=== PATIENT | female | born 1985 | race Caucasian/White ===

== ENCOUNTER → 2017-05-16 14:35 | Outpatient (REF) | payer BC, SELFPAY ==
[2017-05-16 18:07] LABS: Basophils % 0.3 % (0.1-2.0); Eosinophils % 0.3 % (0.1-12.0); Hemoglobin 13.5 g/dL (12.2-16.2); Lymphocytes # 1.1 K/mm3 (0.7-4.5); Mean Corpuscular HGB Conc 32.1 g/dL (31.8-35.4); Mean Corpuscular Hemoglobin 29.8 pg (27.0-31.2); Mean Corpuscular Volume 92.9 fl (81-99); Mean Platelet Volume 10.2 fl (7.4-10.4); Monocytes # 0.3 K/mm3 (0.1-1.0); Monocytes % 3.1 % (1.7-9.3); Neutrophils # 6.5 K/mm3 (1.8-7.8); Neutrophils % 82.3 % (37.0-80.0); Platelet Count 253 K/mm3 (142-424); Red Blood Count 4.52 M/mm3 (4.20-5.40); Red Cell Distribution Width 13.8 % (11.5-17.5); White Blood Count 7.9 K/mm3 (4.8-10.8)
[2017-05-16 19:18] LABS: Hemoglobin A1C 5.1 % (0.0-7.0)
[2017-05-16 19:32] LABS: Alanine Aminotransferase 65 U/L (12-78); Albumin Level 3.9 gm/dL (3.4-5.0); Alkaline Phosphatase 97 U/L (46-116); Anion Gap 15.6 mEq/L (5-15); Aspartate Amino Transferase 44 U/L (15-37); Bilirubin,Total 0.3 mg/dL (0.2-1.0); Blood Urea Nitrogen 10 mg/dL (7-18); Carbon Dioxide 24 mmol/L (21.0-32.0); Chloride 104 mmol/L (98-107); Chol/HDL Ratio 2.2 (1-3.5); Cholesterol 135 mg/dL (140-200); Creatinine,Serum 0.79 mg/dL (0.55-1.02); Estimated Glomerular Filt Rate 84 ml/min (>60); Free T4 (Free Thyroxine) 1.17 ng/dl (0.76-1.46); GFR (African American) 102 ML/MIN (>60); Globulin 4.1 gm/dl (1.3-3.2); Glucose 165 mg/dL (74-106); HDL Cholesterol 62 mg/dL (29-89); LDL Cholesterol 62 mg/dL (0-130); Potassium 3.6 mmoL/L (3.5-5.1); Sodium 140 mmol/L (136-145); Thyroid Stimulating Hormone 0.28 uIU/ml (0.358-3.740); Triglycerides 53 mg/dL (30-200); VLDL Cholesterol 11 mg/dL (0-40)
[2017-05-18 05:18] LABS: Hep A Ab, IgM Negative (Negative); Hepatitis B Core Antibody IgM Negative (Negative); Hepatitis B Surface Antigen Negative (Negative)
[2017-05-18 13:19] LABS: Hepatitis C Antibody >11.0 s/co ratio (0.0-0.9)
[2017-05-18 13:23] LABS: Vitamin D 25 Hydroxy 23.5 ng/mL (30.0-100.0)
== END ==
LOC: LAB 14:35
PROVIDERS: Visit Provider Nurse Practitioner Family
DX: R53.83 Other fatigue (principal); Z79.899 Other long term (current) drug therapy; F41.9 Anxiety disorder, unspecified
CPT/HCPCS: 80053; 80061; 80074; 82652; 83036; 84439; 84443; 85025

== ENCOUNTER → 2018-09-25 08:25 | Outpatient (CLI) | payer BC, SELFPAY ==
--- NOTE | 2018-09-25 08:28 | CA_ITS ---
PROCEDURE: 2-D M-mode and color Doppler study INDICATIONS FOR THE TEST: Chest pain X COPD Heart Murmur Tobacco Smoking Palpitations Fatigue Syncope Edema Hypertension Diabetes Mellitus Rheumatic Fever SOBXDOE ObesityXHyperlipidemia Family History HD Additional History H/O IV DRUG USE,ETOH ABUSE PATIENT INFORMATION HEIGHT: 62 WEIGHT:191 GENDER: Female B/P:121/65 2-D/M-MODE INTERPRETATION: 2-D MEASUREMENTS OBSERVED VALUES IN CMS Right Ventricular Dimension (RVDd) 2.0 Interventricular Septum (Thickness)(IVsd) .8 Left Ventricular Internal Dimensions(LVIDd) 5.7 Left Ventricular Posterior Wall (Thickness)(LVPWd) .8 Aortic Root 2.6 Aortic Cusp Separation 1.6 Left Atrial Dimensions (LAD) 3.7 2D 1. Left atrium is normal size, left ventricle is normal size, there is no concentric left ventricular hypertrophy, visually estimated ejection fraction of 55% with no regional wall motion abnormality. 2. The right atrium and ventricle are normal size and contractility. 3. The aortic, mitral and tricuspid valve are grossly normal. 4. The pulmonic valve is poorly visualized. 5. No significant pericardial effusion noted. DOPPLER INTERROGATION: Doppler interrogation of the aortic, mitral and tricuspid valve reveals presence of mild mitral and tricuspid regurgitation, tricuspid regurgitation jet velocity is inadequate for calculation of the right ventricular systolic pressure, diastolic parameters are within normal range. CONCLUSION: 1. Normal left ventricular size, preserved left ventricular systolic function, visually estimated ejection fraction 55% with no regional wall motion abnormality, diastolic parameters are within normal range. 2. Mild mitral and tricuspid regurgitation 3. No significant pericardial effusion noted.
== END ==
PROVIDERS: PCP Emergency Medicine; Visit Provider Internal Medicine
DX: R07.9 Chest pain, unspecified (principal); R06.02 Shortness of breath; F19.90 Other psychoactive substance use, unspecified, uncomplicated; F17.200 Nicotine dependence, unspecified, uncomplicated
CPT/HCPCS: 93017; 93306

== ENCOUNTER 2020-01-09 20:19 | Emergency (ER) | payer BC, SELFPAY ==
[2020-01-09 20:34] VITALS: BP 118/77; PULSE 111; RESP 18; TEMP 37.4; O2SAT 99; BMI 32.9
--- NOTE | 2020-01-09 20:37 | HMH.EDUTC ---
[facility] [place] Impression: Bronchitis Sinusitis Qualifiers: Sinusitis location: unspecified location Chronicity: unspecified Qualified Code(s): J32.9 - Chronic sinusitis, unspecified Disposition: Home, Self-Care Condition on Discharge: Good Instructions: Sore Throat, Sinusitis, DI for Sinusitis, DI for Cold Sores, Cold Sores Additional Instructions: *Monitor Temp, Over the counter Motrin or Tylenol as directed/as needed Tylenol every 4 hours and Motrin every 6 hours (as long as your family doctor has told you that you can take it) for fever or pain. and straight to ER if unable to lower temp less than 101.0 after medication given *Warm salt water gargles may help to soothe the throat *Throat Lozenges *Warm fluids like tea with honey may help to soothe the throat *Sleep elevated *Humidifier/Vaporizer *Flonase 2 sprays in each nostril daily but be aware that it may take 2-3 days before you notice improvement Over the counter Abreva and/or blistex for fever blisters Follow up IMMEDIATELY for new or worsening symptoms or no Noticeable improvement over the next 48-72 hours. 911 for difficulty breathing or swallowing You was tested for today for COVID19 your test result should be back later this evening, you may call back later this evening to see if your test results are back and the result You was given a handout with instructions for Self Quarantine and Self isolation for while you wait on test results and what to do if they are positive Prescriptions: Fluticasone Propionate [Flonase 50mcg nasal spray 16gm] 1 spr NS DAILY #1 bottle Transmission Status: Pending to [facility] Azithromycin [Z-Jose 250mg Tab] 250 mg PO DIRECTED #6 tab Transmission Status: Pending to [facility] Referrals: Rashad Samuel MD [Primary Care Provider] - As needed Time of Disposition: 20:52 Medical Decision Making - Rodrigo Inquiry Pt receiving controlled substance: No Rodrigo was queried for this patient: No Vital Signs: 01/09/20 20:34 Temperature 99.3 F Temperature Source Oral Pulse Rate [Radial] 111 H Respiratory Rate 18 Blood Pressure [Right Arm] 118/77 Blood Pressure Mean [Right Arm] 90 Blood Pressure Source [Right Arm] Automatic Cuff Blood Pressure Position [Right Arm] Sitting 02 Sat by Pulse Oximetry 99 Oxygen Delivery Method Room Air - Lab Data Lab results reviewed: Yes: I reviewed the patient's lab results. Medical Decision Narrative: Patient states that she has taken zpack before without reaction or complications [facility] [place] - General Stated complaint: fever,sore throat,SOB Time Seen by Provider: 01/09/20 20:38 Mode of Arrival: Ambulatory Source of Information: Patient Limitations: No Limitations Description of Symptoms (Recalled from Triage Doc. by RN): fever, congestion, cough, fever blisters HEENT Symptoms (Recalled from RN notes): Yes Resp Symptoms (Recalled from RN notes): No Skin Symptoms (Recalled from RN notes): No MS Symptoms (Recalled from RN notes): No Functional Status (Recalled from RN notes): wnl - History of Present Illness Provider Complaint: Patient state that she has been having nasal congestion, sore throat, cough and thinks she may have a UTI states that she has been noticing her urine is dark and has a strong odor States that she had a fever all day yesterday and earlier today of 100.1 States that she has not been around anyone with COVID that she is aware of but wants tested States that she has been having sinus pressure and pressure like feeling under her eyes States that she woke up today and had fever blisters - Related Data Previous Rx's Medication Instructions Recorded bupropion HCl 75 mg tablet 75 mg PO BID 30 Days #60 tab 09/04/19 citalopram 20 mg tablet 20 mg PO DAILY #30 tab 09/04/19 hydroxyzine pamoate 50 mg capsule 50 mg PO QID PRN 30 Days #120 cap 09/04/19 quetiapine 100 mg tablet 100 mg PO DAILY #30 tab 09/04/19 Azithromycin [Z-Jose 250mg
[2020-01-09 21:13] LABS: Apearance,Urine Clear (Clear); Color,Urine Amber (Yellow); Glucose,Urine (UA) Negative (Negative); Ketones,Urine Negative (Negative); PH,Urine 5.5 (5.0-8.5); Protein,Urine Negative (Negative); Specific Gravity, Urine 1.025 (1.005-1.030)
[2020-01-09 21:14] LABS: Bilirubin,Urine 1+ (Negative); Blood, Urine Negative (Negative); UTC Leukocyte Esterase,Urine Negative (Negative); UTC Nitrate,Urine Negative (Negative); Urobilinogen,Urine 2 EU/dl (0.2)
[2020-01-09 21:15] LABS: UTC Strep Screen (Rapid) Negative (Negative)
[2020-01-09 21:17] VITALS: BP 118/77; PULSE 111; RESP 18; TEMP 37.4; O2SAT 99
== END 2020-01-09 21:17 | disposition home or self-care (01) ==
PROVIDERS: Emergency Provider Nurse Practitioner; PCP Emergency Medicine
DX: Z20.828 Contact with and (suspected) exposure to other viral communicable diseases (principal); J20.9 Acute bronchitis, unspecified; J32.9 Chronic sinusitis, unspecified; Z88.0 Allergy status to penicillin; F41.8 Other specified anxiety disorders; K21.9 Gastro-esophageal reflux disease without esophagitis; I10 Essential (primary) hypertension; F17.210 Nicotine dependence, cigarettes, uncomplicated
CPT/HCPCS: 81003; 87880; 99202; U0003

== ENCOUNTER → 2020-04-23 15:42 | Outpatient (CLI) | payer BC, SELFPAY ==
--- NOTE | 2020-04-23 16:11 | XR_ITS ---
PROCEDURE: XR CHEST 2V CLINICAL HISTORY: DYSPNEA COMPARISON: CR CXR CHEST(2 VIEWS-NOT PORTABLE) from 01/02/2014 CR Chest from 09/05/2018 FINDINGS: The cardiomediastinal silhouette and pulmonary vascularity are within normal limits. The lungs are clear without infiltrates, suspicious nodules, or pleural effusions. No acute bony abnormalities. IMPRESSION: No acute findings. Dictated by: Latrell Watson MD 04/23/2020 16:45 Latrell Watson MD in [place] 04/23/2020 16:45
[2020-04-23 16:43] LABS: Basophils % 0.5 % (0.1-2.0); Eosinophils # 0.1 K/mm3 (0.0-0.4); Eosinophils % 1.6 % (0.1-12.0); Hematocrit 42.2 % (37.0-47.0); Hemoglobin 13.4 g/dL (12.2-16.2); Lymphocytes # 1.6 K/mm3 (0.7-4.5); Lymphocytes % 28.8 % (10-50); Mean Corpuscular HGB Conc 31.8 g/dL (31.8-35.4); Mean Corpuscular Hemoglobin 29.8 pg (27.0-31.2); Mean Corpuscular Volume 93.7 fl (81-99); Mean Platelet Volume 9.7 fl (7.4-10.4); Monocytes # 0.3 K/mm3 (0.1-1.0); Monocytes % 4.6 % (1.7-9.3); Neutrophils # 3.6 K/mm3 (1.8-7.8); Neutrophils % 64.5 % (37.0-80.0); Platelet Count 238 K/mm3 (142-424); Red Cell Distribution Width 14.1 % (11.5-17.5); White Blood Count 5.6 K/mm3 (4.8-10.8)
[2020-04-23 17:09] LABS: Chloride 105 mmol/L (98-107); Potassium 4.3 mmoL/L (3.5-5.1); Sodium 140 mmol/L (136-145)
[2020-04-23 17:11] LABS: Alanine Aminotransferase 100 U/L (12-78); Alkaline Phosphatase 96 U/L (38-126); Aspartate Amino Transferase 75 U/L (14-36); Bilirubin,Total 0.4 mg/dl (0.2-1.3); Blood Urea Nitrogen 10 mg/dl (7-17); Estimated Glomerular Filt Rate 114 ml/min (>60); GFR (African American) 138 ML/MIN (>60)
[2020-04-23 17:12] LABS: Albumin Level 4.5 g/dl (3.5-5.0); Albumin/Globulin Ratio 1.2 (1.1-1.8); Anion Gap 9.3 mEq/L (5-15); Calcium 9.9 mg/dl (8.4-10.2); Carbon Dioxide 30 mmol/L (22.0-30.0); Globulin 3.7 g/dL (1.3-3.2); Glucose 75 mg/dl (74-100); Total Protein,Serum 8.2 g/dl (6.3-8.2)
[2020-04-23 17:17] LABS: D-Dimer 0.97 ug/mL (0.0-0.5)
[2020-04-23 17:29] LABS: Free T4 (Free Thyroxine) 0.85 ng/dl (0.78-2.19)
== END ==
PROVIDERS: PCP Emergency Medicine; Visit Provider Nurse Practitioner Family
DX: R06.00 Dyspnea, unspecified (principal); R63.5 Abnormal weight gain
CPT/HCPCS: 36415; 71046; 80053; 84439; 84443; 85025; 85378

== ENCOUNTER → 2020-04-29 15:48 | Outpatient (CLI) | payer BC, SELFPAY ==
--- NOTE | 2020-04-29 15:55 | CT_ITS ---
PROCEDURE: CT ANGIO CHEST CLINCIAL INDICATION: DSYPNEA,UNSPECIFIED Left-sided chest pain with dyspnea COMPARISON: No exams were available for comparison TECHNIQUE: IV Contrast: 70ML Isovue 370 Axial images obtained with sagittal and coronal reformats. All CT scans at the facility use one or more dose reduction, viz: automated exposure control, ma/kV adjustment per patient size (including targeted exams where dose is matched to indication, i.e. head), or iterative reconstruction technique. FINDINGS: HEART AND MEDIASTINAL STRUCTURES: No evidence of pulmonary embolus, aortic aneurysm, or aortic dissection. LUNGS AND PLEURAL SPACES: 3 mm subpleural opacity right upper lobe image 29 series 3. No lobar consolidation or collapse. BONY STRUCTURES: No acute bony abnormalities apparent. UPPER ABDOMEN: Along posterior margin of the right hepatic lobe posterior segment there is a 19 x 13 x 15 mm hypodense nodule with some peripheral rim like calcification indeterminate. ADDITIONAL FINDINGS: No other significant abnormalities. IMPRESSION: 1. No acute finding. 2. 3 mm right upper lobe nodule. Consider 6-12 month follow-up. 3. Indeterminate liver lesion in the right hepatic lobe inferiorly. This may be better evaluated with MRI without and with enhancement. Dictated by: Latrell Watson MD 04/30/2020 11:08 Latrell Watson MD in [facility] 04/30/2020 11:08
== END ==
PROVIDERS: PCP Emergency Medicine; Visit Provider Nurse Practitioner Family
DX: R06.00 Dyspnea, unspecified (principal)
CPT/HCPCS: 71275; Q9967

== ENCOUNTER 2020-05-21 05:59 | Emergency (ER) | payer BC, SELFPAY ==
[2020-05-21 06:09] VITALS: BP 159/89; PULSE 85; RESP 16; TEMP 36.8; O2SAT 98; BMI 34.7
--- NOTE | 2020-05-21 06:09 | ECG_ITS ---
APPROVED REPORT Exam: Resting ECG HR:68 bpm ECG Measurements Heart Rate 68 AXES WA 140 P 22 QRSd 92 QRS 75 QT 416 T 51 QTc 442 Conclusion Normal sinus rhythm Normal ECG Electronically signed by : Reginald Valdivia, 05/22/2020 10:06:12
--- NOTE | 2020-05-21 06:14 | XR_ITS ---
PROCEDURE: XR CHEST 2V CLINICAL HISTORY: SOA Shortness of air COMPARISON: CR CXR CHEST(2 VIEWS-NOT PORTABLE) from 01/02/2014 CR Chest from 09/05/2018 CR XR CHEST 2V from 04/23/[address] ANGIO CHEST from 04/29/2020 FINDINGS: The cardiomediastinal silhouette and pulmonary vascularity are within normal limits. The lungs are clear without infiltrates, suspicious nodules, or pleural effusions. No acute bony abnormalities. IMPRESSION: No acute findings. Dictated by: Latrell Watson MD 05/21/2020 06:36 Latrell Watson MD in [facility] 05/21/2020 06:36
[2020-05-21 06:30] LABS: Basophils % 0.6 % (0.1-2.0); Eosinophils # 0.2 K/mm3 (0.0-0.4); Hematocrit 41.8 % (37.0-47.0); Hemoglobin 13.8 g/dL (12.2-16.2); Lymphocytes # 2.5 K/mm3 (0.7-4.5); Lymphocytes % 36.6 % (10-50); Mean Corpuscular Hemoglobin 30.7 pg (27.0-31.2); Mean Corpuscular Volume 93.2 fl (81-99); Monocytes # 0.4 K/mm3 (0.1-1.0); Monocytes % 5.7 % (1.7-9.3); Neutrophils # 3.7 K/mm3 (1.8-7.8); Neutrophils % 54.1 % (37.0-80.0); Platelet Count 216 K/mm3 (142-424); Red Blood Count 4.48 M/mm3 (4.20-5.40); Red Cell Distribution Width 13.6 % (11.5-17.5); White Blood Count 6.9 K/mm3 (4.8-10.8)
[2020-05-21 06:40] LABS: Alanine Aminotransferase 82 U/L (12-78); Albumin Level 4.5 g/dl (3.5-5.0); Albumin/Globulin Ratio 1.1 (1.1-1.8); Alkaline Phosphatase 86 U/L (38-126); Anion Gap 7.5 mEq/L (5-15); Aspartate Amino Transferase 62 U/L (14-36); Bilirubin,Total 0.4 mg/dl (0.2-1.3); Blood Urea Nitrogen 10 mg/dl (7-17); Calcium 9.4 mg/dl (8.4-10.2); Carbon Dioxide 30 mmol/L (22.0-30.0); Chloride 106 mmol/L (98-107); Creatinine Clearance Estimated 178 mL/min (50-200); Estimated Glomerular Filt Rate 114 ml/min (>60); GFR (African American) 138 ML/MIN (>60); Globulin 4.1 g/dL (1.3-3.2); Glucose 131 mg/dl (74-100); Potassium 3.5 mmoL/L (3.5-5.1); Sodium 140 mmol/L (136-145); Total Protein,Serum 8.6 g/dl (6.3-8.2)
[2020-05-21 06:46] LABS: C-Reactive Protein 14.8 mg/L (0-4)
[2020-05-21 06:55] LABS: Troponin I < 0.01 ng/ml (0.00-0.034)
[2020-05-21 06:59] LABS: Erythrocyte Sedimentation Rate 26 mm/hr (0-20)
[2020-05-21 07:08] LABS: Microscopic, Urine URINE MICROSCOPIC (MICROSCOPIC)
[2020-05-21 07:12] LABS: Appearance,Urine CLEAR (Clear); Bilirubin,Urine Negative (Negative); Blood, Urine TRACE-I (Negative); Color,Urine YELLOW (Yellow); Glucose,Urine (UA) Negative (Negative); Ketones,Urine Negative (Negative); Leukocyte Esterase,Urine Negative (Negative); Nitrate,Urine Negative (Negative); PH,Urine 6.5 (5.0-8.5); Protein,Urine Negative (Negative); Specific Gravity, Urine <= 1.005 (1.005-1.030); Urobilinogen,Urine 0.2 EU/dl (0.2)
--- NOTE | 2020-05-21 07:24 | HMH.EDCP ---
ED Disposition Clinical Impression: Palpitations Disposition: Home, Self-Care Condition on Discharge: Good Instructions: DI for Shortness of Breath Additional Instructions: see pcp for follow up Referrals: Rashad Samuel MD [Primary Care Provider] - - Critical Care Critical Care Time: No Attestation: On 05/21/20, the high probability of a clinically significant, sudden or life threatening deterioration of the following system(s) required my full and direct attention, intervention and personal management. The time I documented below is in addition to time spent performing reported procedures but includes the following listed in this critical care notation. Medical Decision Making - Medical Records Medical records reviewed: Yes: I reviewed the patient's medical records. - Rodrigo Inquiry Pt receiving controlled substance: No Vital Signs: 05/21/20 06:09 Temperature 98.3 F Temperature Source Oral Pulse Rate [Left] 85 Respiratory Rate 16 Blood Pressure [Right Arm] 159/89 H Blood Pressure Mean [Right Arm] 112 Blood Pressure Source [Right Arm] Automatic Cuff Blood Pressure Position [Right Arm] Sitting 02 Sat by Pulse Oximetry 98 Oxygen Delivery Method Room Air - Lab Data Lab results reviewed: Yes: I reviewed the patient's lab results. Lab Results 05/21/20 06:08: Urine Color Yellow, Urine Appearance Clear, Urine pH 6.5, Ur Specific [place] <= 1.005, Urine Protein Negative, Urine Glucose (UA) Negative, Urine Ketones Negative, Urine Blood Trace-i, Urine Nitrate Negative, Urine Bilirubin Negative, Urine Urobilinogen 0.2, Ur Leukocyte Esterase Negative, Urine RBC 3-5, Urine WBC 3-5, Ur Squamous Epith Cells 3-5 05/21/20 06:17: WBC 6.9, RBC 4.48, Hgb 13.8, Hct 41.8, MCV 93.2, MCH 30.7, MCHC 33.0, RDW 13.6, Plt Count 216, MPV 9.0, Neut % (Auto) 54.1, Lymph % (Auto) 36.6, [place] % (Auto) 5.7, Eos % (Auto) 3.0, Baso % (Auto) 0.6, Neut # (Auto) 3.7, Lymph # (Auto) 2.5, [place] # (Auto) 0.4, Eos # (Auto) 0.2, Baso # (Auto) 0.0, ESR 26 H 05/21/20 06:17: Sodium 140, Potassium 3.5, Chloride 106, Carbon Dioxide 30, Anion Gap 7.5, BUN 10, Creatinine 0.60, Estimated Creat Clear 178, Estimated GFR 114, Est GFR ( Amer) 138, Glucose 131 H, Calcium 9.4, Total Bilirubin 0.4, AST 62 H, ALT 82 H, Alkaline Phosphatase 86, Troponin I < 0.01, C-Reactive Protein 14.8 H, Total Protein 8.6 H, Albumin 4.5, Globulin 4.1 H, Albumin/Globulin Ratio 1.1 Result diagrams: 05/21/20 06:17 05/21/20 06:17 Orders (Tests/Meds): ED MEDICATIONS Generic Name Dose Route Start Last Admin Trade Name Freq PRN Reason Stop Dose Admin Sodium Chloride 1,000 mls @ 999 mls/hr 05/21/20 06:15 05/21/20 06:17 Sod Chlor 0.9% 1000ml Bag IV 05/21/20 07:15 999 mls/hr .Q1H1M CHARMAINE Administration ORDERS Category Date Time Status Troponin I Q3H Lab 05/21/20 09:15 Ordered Troponin I Q3H Lab 05/21/20 12:15 Ordered - Radiology Data #1 Image(s): Chest Image Reviewed: Yes I reviewed the patient's radiology image Preliminary Findings: Normal/NAD - ECG Data Tracing #1 Normal Sinus Rhythm: Yes Ischemic changes: non-specific ST-T wave changes Medical Decision Narrative: will place holter at this time - has pending echo Chest Pain HPI - General Chief Complaint: Shortness of Breath/Dyspnea Stated Complaint: Diff breathing Time Seen by Provider: 05/21/20 06:45 Mode of Arrival: Ambulatory Source of Information: Patient, Medical Record Limitations: No Limitations Description of Symptoms (Recalled from ER Triage Doc. by RN): Patient advises for the past couple of months she has been having multiple issues/symptoms including SOA, problems with her b/p and feeling weird at times. Advises she has been having multiple tests and is scheduled for MRI and echo later this week. Tonight she advises she became SOA and felt funny on the inside - History of Present Illness HPI narrative: having episodes of feeling faint and has fluctua
[2020-05-21 08:15] VITALS: BP 145/70; PULSE 85; RESP 16; TEMP 36.8; O2SAT 98
== END 2020-05-21 08:20 | disposition home or self-care (01) ==
PROVIDERS: Emergency Provider Emergency Medicine; PCP Emergency Medicine
DX: R00.2 Palpitations (principal); I10 Essential (primary) hypertension; F41.8 Other specified anxiety disorders; K21.9 Gastro-esophageal reflux disease without esophagitis; Z79.899 Other long term (current) drug therapy; F17.210 Nicotine dependence, cigarettes, uncomplicated; Z88.0 Allergy status to penicillin; Z88.5 Allergy status to narcotic agent
CPT/HCPCS: 71046; 80053; 81001; 84484; 85025; 85651; 86140; 93005; 93225; 93226; 96365; 99283

== ENCOUNTER → 2020-05-26 09:08 | Outpatient (CLI) | payer BC, SELFPAY ==
--- NOTE | 2020-05-26 09:11 | CA_ITS ---
APPROVED REPORT EXAM: Comprehensive 2D, Doppler, and color-flow Echocardiogram Show Operations Supervisor: KAMALJIT Galloway, RVS Ht: 5 ft 2 in Wt: 191lbs BSA: 1.87 BP: 159/89 mmHg Indications: Dyspnea, smoker, ETOH abuse, IV drug abuse, GERD Echo Enhancing Agent Comments: Technically difficult exam due to extreme body habitus 2D Dimensions LVDd 5.20 cm F: 3.9 - 5.3 LVEF (Visual) 49.70 % LVDs 3.88 cm F: 2.2 - 3.5 LA Volume 45.60 mL LVOT 2.09 cm (M/F) 1.5-2.5 LA Volume Index [id number] mL/m2 (M/F) 16-34 M-Mode Dimensions LA Diam 3.70 cm (1.9-4.0) LVDd 5.51 cm (3.5-5.7) Ao Diam 2.94 cm (2.0-3.7) LVDs 3.33 cm (3.5-5.7) IVSd 0.89 cm (0.6-1.1) PWd 0.86 cm (0.6-1.1) EF (Teich) 69.50% EPSs 1.00 cm FS 39.60% EDV (Teich) 148.00 mL TAPSE 2.66 (<1.7) ESV (Teich) 45.10 mL LV Diastology E Decel Time 227.00 (160-240 msec) E/A Ratio 1.63 MED E' 8.80 (< 7 cm/sec) MED A' 8.50 cm/s E'/MED E' Ratio 12.01 (>14) LAT E' 14.00 (<10 cm/sec) LAT A' 8.00 cm/s E/LAT E' Ratio 7.55 (>14) Aortic Valve AoV Peak Brenden. 141.00 (50-130 cm/s) AO Peak GR. 8.00 mmHg AO Mean GR. 4.30 (<5 mmHg) AO VTI 33.29 (18-25 cm) Mitral Valve MV E Max Brenden. 106.00 (40-130 cm/s) MV A Velocity 65.00 (40-130 cm/s) E/A Ratio 1.63 MV Decel. Time 227.00 (160-240 ms) MV PHT 66.00 ms Pulmonary Valve PV Peak Velocity 105.00 (50-150 cm/s) Tricuspid Valve TR P. Velocity 208.00 cm/s RAP Estimate 10.00 mmHg RVSP 27.30 mmHg Left Ventricle Left atrium is normal size, left ventricle is normal size, there is no concentric left ventricular hypertrophy, visually estimated ejection fraction 55% with no regional wall motion abnormality. Diastolic parameters are normal. Right Ventricle Right atrium and right ventricle are normal size and contractility. Aortic Valve Aortic valve is grossly normal. There is no aortic stenosis or aortic insufficiency. Mitral Valve Mitral valve is grossly normal, there is trace mitral regurgitation. Tricuspid Valve Tricuspid valve grossly normal, there is trace tricuspid regurgitation, tricuspid regurgitation jet velocity is inadequate for calculation of the right ventricular systolic pressure. Pulmonic Valve Pulmonic valve is poorly visualized. Great Vessels Aortic root is normal size. Pericardium No significant pericardial effusion noted. Conclusion 1. Normal left ventricular size, preserved left ventricular systolic function, visually estimated ejection fraction 55% with no regional wall motion abnormality. Diastolic parameters are within normal range. 2. Trace mitral and tricuspid regurgitation. 3. No significant pericardial effusion noted. Electronically signed by : Reynold Varela, 05/26/2020 10:59:22
== END ==
PROVIDERS: PCP Emergency Medicine; Visit Provider Nurse Practitioner Family
DX: R06.00 Dyspnea, unspecified (principal); D37.6 Neoplasm of uncertain behavior of liver, gallbladder and bile ducts
CPT/HCPCS: 93306

== ENCOUNTER → 2021-03-06 08:11 | Outpatient (CLI) | payer BC, SELFPAY | PROVIDERS: PCP Emergency Medicine; Visit Provider Nurse Practitioner Family | DX: R10.9 Unspecified abdominal pain (principal) ==

== ENCOUNTER → 2022-07-21 10:20 | Outpatient (CLI) | payer MEDICAID, SELFPAY ==
[2022-07-21 17:17] LABS: Amphetamine/Metha Screen,Urine Negative ng/ml (<1000); Barbiturates Screen,Urine Negative ng/ml (<200)
[2022-07-21 17:18] LABS: Benzodiazepines Screen,Urine Negative ng/ml (<200); Cannabinoid Screen,Urine Negative ng/ml (<50)
[2022-07-21 17:19] LABS: Opiate Screen,Urine Negative ng/ml (<300)
[2022-07-21 17:20] LABS: Cocaine Screen,Urine Negative ng/ml (<300); Methadone Screen,Urine Negative ng/ml (<300)
[2022-07-21 17:21] LABS: Phencyclidine Screen,Urine Negative ng/ml (<25)
== END ==
PROVIDERS: Visit Provider Family Medicine
DX: F41.0 Panic disorder [episodic paroxysmal anxiety] (principal)
CPT/HCPCS: 80305

== ENCOUNTER → 2022-10-22 17:55 | Outpatient (CLI) | payer MEDICAID, SELFPAY ==
[2022-10-22 17:39] LABS: Anion Gap 12.8 mEq/L (5-15); Blood Urea Nitrogen 8 mg/dl (7-17); Calcium 8.9 mg/dl (8.4-10.2); Carbon Dioxide 26 mmol/L (22.0-30.0); Chloride 106 mmol/L (98-107); Estimated Glomerular Filt Rate 94 ml/min (>60); GFR (African American) 113 ML/MIN (>60); Glucose 91 mg/dl (74-100); Potassium 3.8 mmoL/L (3.5-5.1); Sodium 141 mmol/L (136-145)
== END ==
PROVIDERS: PCP Family Medicine; Visit Provider Family Medicine
DX: F19.10 Other psychoactive substance abuse, uncomplicated (principal)
CPT/HCPCS: 36415; 80048

== ENCOUNTER → 2023-01-14 16:45 | Outpatient (CLI) | payer MEDICAID, SELFPAY | PROVIDERS: PCP Nurse Practitioner Family; Visit Provider Nurse Practitioner Family | DX: R05.9 Cough, unspecified (principal); R09.89 Other specified symptoms and signs involving the circulatory and respiratory systems; R05.8 Other specified cough | CPT/HCPCS: 87635 ==